=== PATIENT | female | born 1955 | race Asian ===

== ENCOUNTER 2021-09-04 07:59 | Outpatient (REF) | payer OTHER, SELFPAY ==
--- NOTE | ~2021-09-04 | CT_ITS ---
EXAMINATION: CT SOFT TISSUE NECK WITH CONTRAST CLINICAL INFORMATION: Neck pain. Headache. COMPARISON: Neck CT 11/05/2019. TECHNIQUE: Following the administration of 80 mL of Omnipaque 300 intravenous contrast, helical imaging was performed in the axial plane with generation of coronal and sagittal reformatted images. This CT examination was performed using dose optimization techniques as appropriate, variously including the following: *Automated exposure control *Adjustment of mA and/or kV according to patient size (this includes techniques or standardized protocols for targeted exams where dose is matched to indication/reason for exam; i.e. extremities or head) *Use of iterative reconstruction technique DLP: 279 mGy-cm FINDINGS: The nasopharynx appears normal. Nonenlarged retropharyngeal lymph nodes are seen bilaterally. There are left-sided palatine tonsilloliths. The base of tongue appears symmetric. No discrete oropharyngeal lesion is seen. Both submandibular glands demonstrate heterogeneous enhancement. There is no dilatation of the submandibular ducts. The parotid glands appear normal and symmetric. No sialolith is seen. No enlarged lymph nodes are noted. A 5 mm pulmonary nodule is seen at the right lung apex on series 4 image 101/135. Nonenlarged upper mediastinal lymph nodes are seen. Subcentimeter nodules are present within the thyroid gland. The major neck vessels are patent. The imaged portions of the intracranial contents appear normal. Mild degenerative changes are seen within the spine. No destructive osseous process is seen. CT/CT soft tissue neck w con IMPRESSION: No neck mass or enlarged lymph nodes. Heterogeneous enhancement of the submandibular glands is nonspecific but could represent the sequela of chronic sialoadenitis. 5 mm pulmonary nodule at the right lung apex seen on series 4 image 101/135. According to the updated 2017 Fleischner Society recommendations, the advised follow-up imaging for solid nodules < 6 mm is: LOW RISK PATIENT: No routine follow-up. HIGH RISK PATIENT: Optional CT at 12 months.
--- NOTE | ~2021-09-04 | CT_ITS ---
EXAMINATION: CT HEAD WITH CONTRAST CLINICAL INFORMATION: Headache. COMPARISON: None TECHNIQUE: Contiguous axial imaging was performed from the skull base to vertex following the administration of 100 mL of Omnipaque [address] examination was performed using dose optimization techniques as appropriate, variously including the following: *Automated exposure control *Adjustment of mA and/or kV according to patient size (this includes techniques or standardized protocols for targeted exams where dose is matched to indication/reason for exam; i.e. extremities or head) *Use of iterative reconstruction technique DLP: 1202 mGy-cm FINDINGS: There is no evidence of acute intracranial hemorrhage or territorial infarction. No abnormal mass effect or midline shift is seen. Benavidez to white matter differentiation is well preserved. No extra-axial fluid collections are identified. There is no abnormal enhancement. The ventricles are normal in size. There is no abnormal attenuation within the brain parenchyma. The osseous structures and soft tissues are normal. The mastoid air cells and visualized portions of the paranasal sinuses are well aerated. CT/CT head/brain w con IMPRESSION: No acute intracranial process seen.
[2021-09-04] MEDS: iohexoL 350 MG/ML 100 ML INFUS..BTL IV (09:39)
== END 2021-09-04 08:00 | disposition home or self-care (01) ==
LOC: HO.CT 07:59
PROVIDERS: Visit Provider Internal Medicine Hematology & Oncology
DX: R51.9 Headache, unspecified (principal); M54.2 Cervicalgia
CPT/HCPCS: 70460; 70491; Q9967